=== PATIENT | male | born 2000 | race African-American/Black ===

== ENCOUNTER 2020-11-09 10:23 | Emergency (ER) | payer OTHER ==
[~2020-11-09] VITALS: Ht 172.7 cm; Wt 62.1 kg
[2020-11-09 10:31] VITALS: BP 118/61; TEMP 98.5
== END 2020-11-09 12:28 | disposition home or self-care (01) ==
LOC: ED 10:23
PROC: 0HQGXZZ Repair Left Hand Skin, External Approach (ICD-10-PCS; principal; 2020-11-09)
PROC: 2W3HX1Z Immobilization of Left Thumb using Splint (ICD-10-PCS; 2020-11-09)
DX: S62.522A Displaced fracture of distal phalanx of left thumb, initial encounter for closed fracture (principal); S61.112A Laceration without foreign body of left thumb with damage to nail, initial encounter; W22.8XXA Striking against or struck by other objects, initial encounter; W27.8XXA Contact with other nonpowered hand tool, initial encounter; Y92.89 Other specified places as the place of occurrence of the external cause
CPT/HCPCS: 99283; J2001